=== PATIENT | female | born 1945 | race Caucasian/White ===

== ENCOUNTER 2022-11-19 09:06 | Outpatient (CLI) | payer OTHER ==
[~2022-11-19] VITALS: Ht 152.4 cm; Wt 60.8 kg
== END 2022-11-19 09:15 | disposition home or self-care (01) ==
LOC: RAD 09:06
PROVIDERS: ATTEND Orthopaedic Surgery
DX: S52.532A Colles' fracture of left radius, initial encounter for closed fracture (principal); M25.512 Pain in left shoulder

== ENCOUNTER 2022-11-19 12:49 | Outpatient (CLI) | payer OTHER | END 2022-11-19 12:51 | disposition home or self-care (01) | LOC: LAB 12:49 | PROVIDERS: ATTEND Orthopaedic Surgery | DX: D68.8 Other specified coagulation defects (principal); N39.0 Urinary tract infection, site not specified; Z20.822 Contact with and (suspected) exposure to COVID-19; A49.02 Methicillin resistant Staphylococcus aureus infection, unspecified site; Z76.89 Persons encountering health services in other specified circumstances; I49.9 Cardiac arrhythmia, unspecified; I10 Essential (primary) hypertension ==

== ENCOUNTER 2022-11-25 06:13 | Day surgery (SDC) | payer OTHER | END 2022-11-25 17:30 | disposition home or self-care (01) | LOC: CIR.AMB 06:13 | PROVIDERS: ATTEND Orthopaedic Surgery | DX: S52.542A Smith's fracture of left radius, initial encounter for closed fracture (principal); Z20.822 Contact with and (suspected) exposure to COVID-19; M65.9 Synovitis and tenosynovitis, unspecified; I10 Essential (primary) hypertension | CPT/HCPCS: 25609; 20902; L8699 ==

== ENCOUNTER 2023-05-09 09:28 | Outpatient (CLI) | payer OTHER | END 2023-05-09 09:35 | disposition critical access hospital, planned readmission (94) | LOC: RAD 09:28 | PROVIDERS: ATTEND Orthopaedic Surgery | DX: M25.532 Pain in left wrist (principal) ==

== ENCOUNTER 2023-05-12 08:32 | Outpatient (CLI) | payer OTHER ==
[2023-05-12 10:13] LABS: ALBUMIN 3.2 gm/dL (3.4-5.0); BILIRUBIN TOTAL 0.53 mg/dL (0.3-1.2); CALCIUM 9.1 mg/dL (8.5-10.1); CREATININE SERUM 0.73 mg/dL (0.55-1.02); GFR 76.9; MAGNESIUM 2.1 mg/dL (1.8-2.4); POTASSIUM 4.27 mEq/L (3.5-5.1); TOTAL PROTEIN 6.2 gm/dL (6.4-8.2)
[2023-05-13 16:07] LABS: CALCIUM IONIZED 5.1 mg/dL (4.5-5.6)
== END 2023-05-12 08:33 | disposition home or self-care (01) ==
LOC: LAB 08:32
PROVIDERS: ATTEND Orthopaedic Surgery
DX: M81.8 Other osteoporosis without current pathological fracture (principal); E21.3 Hyperparathyroidism, unspecified; E56.1 Deficiency of vitamin K

== ENCOUNTER 2024-10-20 14:51 | Outpatient (CLI) | payer OTHER | END 2024-10-20 14:58 | disposition home or self-care (01) | LOC: RAD 14:51 | PROVIDERS: ATTEND Physical Medicine & Rehabilitation | DX: M54.2 Cervicalgia (principal) ==

== ENCOUNTER 2024-12-13 10:31 | Outpatient (CLI) | payer OTHER | END 2024-12-13 10:45 | disposition home or self-care (01) | LOC: NUCLEAR 10:31 | PROVIDERS: ATTEND Physical Medicine & Rehabilitation | DX: M81.0 Age-related osteoporosis without current pathological fracture (principal) ==